=== PATIENT | male | born 1955 | race Caucasian/White ===

== ENCOUNTER 2020-09-17 11:19 | Emergency (ER) | payer OTHER, SELFPAY ==
[~2020-09-17] VITALS: Ht 165.1 cm; Wt 81.6 kg
[2020-09-17 11:32] VITALS: BP_SYST 124
[2020-09-17] MEDS ORDERED: ALLO100T PO (11:41)
[2020-09-17] MEDS ORDERED: GLU500 PO (11:41)
[2020-09-17] MEDS ORDERED: DEC1 PO (11:41)
[2020-09-17] MEDS ORDERED: DOCU250C14 PO (11:41)
[2020-09-17] MEDS ORDERED: LEVE500T9 PO (11:41)
[2020-09-17 12:01] LABS: BASOPHILS % (AUTO) 0.4 % (0.0-2.0); EOSINOPHILS # (AUTO) 0.1 K/uL (0.0-0.4); EOSINOPHILS % (AUTO) 2.2 % (0.0-4.0); HEMOGLOBIN 12.4 g/dL (14.0-18.0); LYMPHOCYTES # (AUTO) 0.8 K/uL (1.0-5.5); LYMPHOCYTES % (AUTO) 24.2 % (20.5-51.5); MEAN CORPUSCULAR HEMOGLOBIN 31 pg (27-31); MEAN CORPUSCULAR HGB CONC 34 % (32-36); MEAN CORPUSCULAR VOLUME 89 fL (79.0-98.0); MONOCYTES # (AUTO) 0.6 K/uL (0.0-1.0); MONOCYTES % (AUTO) 19.4 % (1.7-9.3); NEUTROPHILS # (AUTO) 1.8 K/uL (1.8-7.7); NEUTROPHILS % (AUTO) 53.8 % (40.0-70.0); PLATELET COUNT (AUTO) 254 K/uL (130-430); RED BLOOD CELL COUNT(AUTO) 4.07 MIL/uL (4.2-6.2); WHITE BLOOD COUNT (AUTO) 3.3 K/uL (4.8-10.8)
[2020-09-17 12:12] LABS: ANION GAP 6 (5-15); CHLORIDE 103 mmol/L (98-107); CREATININE 0.99 mg/dL (0.55-1.30); GLUCOSE 150 mg/dL (70-99); POTASSIUM 3.6 mmol/L (3.5-5.1); SODIUM SERUM 139 mmol/L (136-145); UREA NITROGEN, BLOOD 15 mg/dL (8-21)
[2020-09-17 12:13] LABS: GFR AFRICAN AMERICAN 98 mL/min (>90)
[2020-09-17 12:23] LABS: ALANINE AMINOTRANSFERASE 56 U/L (12-78); ALBUMIN 2.9 g/dL (3.4-4.8); ASPARTATE AMINOTRANSFERASE 20 U/L (10-37); TOTAL BILIRUBIN 0.4 mg/dL (0.0-1.0)
[2020-09-17] MEDS ORDERED: NS 500 ML IV ONE (12:45)
[2020-09-17 14:12] LABS: BILIRUBIN,URINE NEGATIVE (NEGATIVE); CLARITY/URINE CLEAR (CLEAR); COLOR,URINE YELLOW (YELLOW); GLUCOSE,URINE NEGATIVE (NEGATIVE); KETONES,URINE NEGATIVE (NEGATIVE); LEUKOCYTE ESTERASE ,URINE NEGATIVE (NEGATIVE); NITRITE, URINE POSITIVE (NEGATIVE); PH,URINE 6.5 (5.0-8.0); PROTEIN URINE NEGATIVE (NEGATIVE); UROBILINOGEN,URINE 0.2 (0.2-1.0)
[2020-09-17 14:22] LABS: BLOOD, URINE TRACE (NEGATIVE)
[2020-09-17 14:26] LABS: BACTERIA,URINE MODERATE /HPF (None Seen); RBC,URINE 0-3 /HPF (0-3); WBC,URINE 0-3 /HPF (0-3)
[2020-09-17 14:27] LABS: MUCUS,URINE 1+ /LPF (None Seen)
[2020-09-17] MEDS ORDERED: cefTRIAXone 1 GM in D5W 50 ML IV ONE (14:45)
[2020-09-17] MEDS ORDERED: NITR-85 PO (14:46)
[2020-09-17] MEDS ORDERED: cefTRIAXone 1 GM VIAL ONE (14:54)
[2020-09-17 15:36] VITALS: BP_SYST 140
[2020-09-19] MEDS ORDERED: ALPR0.25 PO (09:28)
== END 2020-09-17 15:36 | disposition home or self-care (01) ==
LOC: SED 11:19
DX: R53.1 Weakness (principal); D72.819 Decreased white blood cell count, unspecified; Z20.822 Contact with and (suspected) exposure to COVID-19; W18.39XA Other fall on same level, initial encounter; Y93.89 Activity, other specified; Y92.89 Other specified places as the place of occurrence of the external cause; Y99.8 Other external cause status
CPT/HCPCS: 36415; 70450; 71045; 76376; 80053; 81000; 84484; 85025; 86886; 86900; 86901; 87081; 87086; 87426; 93005; 96360; 99285; J0696; J7040